=== PATIENT | male | born 2005 | race Caucasian/White ===

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

== ENCOUNTER 2023-07-02 07:38 | Emergency (ER) | payer OTHER ==
[~2023-07-02] VITALS: Ht 190.5 cm; Wt 81.7 kg
[2023-07-02 08:18] LABS: BASOPHILS ABSOLUTE AUTO 0.02 K/mm3 (0.00-0.23); BASOPHILS PERCENT AUTO 0 % (0-2); EOSINOPHILS ABSOLUTE AUTO 0.03 K/mm3 (0.00-0.68); EOSINOPHILS PERCENT AUTO 0 % (0-6); Hemoglobin 16.6 g/dL (13.5-17.5); IMMATURE GRAN ABSOLUTE AUTO 0.03 K/mm3 (0.00-0.10); IMMATURE GRAN PERCENT AUTO 0 % (0-1); LYMPHOCYTES ABSOLUTE AUTO 1.26 K/mm3 (0.84-5.20); LYMPHOCYTES PERCENT AUTO 13 % (21-46); MONOCYTES ABSOLUTE AUTO 0.44 K/mm3 (0.16-1.47); MONOCYTES PERCENT AUTO 5 % (4-13); Mean Corpuscular HGB 28.6 pg (26.0-34.0); Mean Corpuscular HGB Conc 34.6 g/dL (31.5-36.5); Mean Corpuscular Volume 83 fL (80-100); Mean Platelet Volume 9.7 fL (9.1-12.4); NEUTROPHILS ABSOLUTE AUTO 8.05 K/mm3 (1.96-9.15); NEUTROPHILS PERCENT AUTO 82 % (41-73); Platelet Count 249 K/mm3 (150-400); RDW Standard Deviation 36.4 fL (35.1-46.3); Red Blood Cell Count 5.81 M/mm3 (4.30-5.90); White Blood Cell Count 9.83 K/mm3 (4.00-11.30)
[2023-07-02 08:41] LABS: Albumin, Blood 4.5 g/dL (3.4-5.0); Albumin/Globulin Ratio 1.3 (0.8-1.8); Bilirubin, Direct 0.1 mg/dL (0.0-0.3); Bilirubin, Indirect 0.4 mg/dL (0.1-0.7); Bilirubin, Total 0.5 mg/dL (0.1-1.0); Bun/Creatinine Ratio 9.3 (12.0-20.0); Calcium, Blood 9.7 mg/dL (8.5-10.1); Creatinine, Blood 1.07 mg/dL (0.60-1.20); Globulin, Blood 3.5 g/dL (2.2-4.0); Magnesium, Blood 2.2 mg/dL (1.6-2.4); Potassium, Blood 4.3 mmol/L (3.5-5.5)
[2023-07-02 10:19] LABS: Source, Urine Clean Catch
[2023-07-02 10:34] LABS: Appearance, Urine Cloudy (Clear); Bilirubin, Urine Neg (Neg); Blood, Urine Neg (Neg); Color, Urine Yellow (P-Yellow); Glucose Qualitative, Urine Neg (Neg); Ketones, Urine Neg (Neg); Leukocyte Esterase, Urine Neg (Neg); Nitrite, Urine Neg (Neg); Protein, Urine 1+ (Neg); Urobilinogen, Urine NORM (Normal)
[2023-07-02 10:54] LABS: Amorphous Heavy (0-Heavy); Bacteria Not Seen /hpf; Red Blood Cells, Urine Not Seen /hpf (0-2); Squamous Epithelial Cells Not Seen /hpf (Few); White Blood Cells, Urine Not Seen /hpf (0-5)
[2023-07-02] MEDS ORDERED: DICY20 PO (11:23)
[2023-07-02] MEDS ORDERED: ONDA4ODT MM (11:23)
[2023-07-02 11:30] VITALS: BP 114/79
== END 2023-07-02 11:37 | disposition home or self-care (01) ==
LOC: ER 07:38
PROVIDERS: Student in an Organized Health Care Education/Training Program
DX: R10.10 Upper abdominal pain, unspecified (principal); R11.2 Nausea with vomiting, unspecified; Z88.0 Allergy status to penicillin; Z88.8 Allergy status to other drugs, medicaments and biological substances; F43.10 Post-traumatic stress disorder, unspecified
CPT/HCPCS: 74177; 80048; 80076; 81001; 83690; 83735; 85025; 93005; 93010; 96374-59; 96375-59; 99284-25; A9270; J1885; J2405; J7030; Q9967

== ENCOUNTER 2023-09-14 08:23 | Observation (INO) | payer OTHER ==
[~2023-09-14] VITALS: Ht 190.5 cm; Wt 81.7 kg
[2023-09-14] VITALS (12 sets, daily range): BP systolic 124–146; BP diastolic 68–87
[~2023-09-14 08:23] MED LIST changes: +DICY20 PO; +ONDA4ODT MM
[2023-09-14 10:00] LABS: BASOPHILS ABSOLUTE AUTO 0.02 K/mm3 (0.00-0.23); BASOPHILS PERCENT AUTO 0 % (0-2); EOSINOPHILS ABSOLUTE AUTO 0.02 K/mm3 (0.00-0.68); EOSINOPHILS PERCENT AUTO 0 % (0-6); Hematocrit 48.3 % (37.0-53.0); Hemoglobin 16.8 g/dL (13.5-17.5); IMMATURE GRAN ABSOLUTE AUTO 0.02 K/mm3 (0.00-0.10); IMMATURE GRAN PERCENT AUTO 0 % (0-1); LYMPHOCYTES ABSOLUTE AUTO 1.18 K/mm3 (0.84-5.20); LYMPHOCYTES PERCENT AUTO 11 % (21-46); MONOCYTES PERCENT AUTO 5 % (4-13); Mean Corpuscular HGB 28.6 pg (26.0-34.0); Mean Corpuscular HGB Conc 34.8 g/dL (31.5-36.5); Mean Corpuscular Volume 82 fL (80-100); Mean Platelet Volume 9.6 fL (9.1-12.4); NEUTROPHILS ABSOLUTE AUTO 9.35 K/mm3 (1.96-9.15); NEUTROPHILS PERCENT AUTO 84 % (41-73); Platelet Count 225 K/mm3 (150-400); RDW Coefficient Variation 11.9 % (11.7-14.2); RDW Standard Deviation 36.1 fL (35.1-46.3); Red Blood Cell Count 5.87 M/mm3 (4.30-5.90); White Blood Cell Count 11.09 K/mm3 (4.00-11.30)
[2023-09-14 10:24] LABS: Albumin, Blood 4.3 g/dL (3.4-5.0); Albumin/Globulin Ratio 1.3 (0.8-1.8); Bilirubin, Total 0.4 mg/dL (0.1-1.0); Bun/Creatinine Ratio 11.8 (12.0-20.0); Calcium, Blood 9.4 mg/dL (8.5-10.1); Creatinine, Blood 0.94 mg/dL (0.60-1.20); Globulin, Blood 3.4 g/dL (2.2-4.0); Potassium, Blood 3.9 mmol/L (3.5-5.5); Total Protein, Blood 7.7 g/dL (6.4-8.2)
--- NOTE | 2023-09-14 14:58 | NUR ---
APPROX 1410 PT ARRIVED TO ROOM VIA GURNEY FROM E.R., ABLE TO INDEPENDENTLY STAND AMBULATE TO BRP AND VOID, REPOSITION SELF IN BED, REP NPO SINCE 09/13 1800, DENIES N&V AND PAIN AT THIS TIME, IVF @ 100 MLS/HR, SURGICAL PRE-OP CLEANSE COMPLETE, SURGICAL PACKET COMPLETE, MOM BEDSIDE. LEFT FOR O.R. ON GURNEY AT 1500.
--- NOTE | 2023-09-14 18:44 | NUR ---
SHIFT SUMMARY BACK TO ROOM FROM PACU 0, S/P LAP ADDIS, 4 LAP SITES/STERIS CDI, A&OX4, VSS/RA, BEATRIZ PO CLD, DENIES PAIN, AWAITING POSTOP VOID, FAMILY BEDSIDE. WILL REPORT TO ONCOMING NOC RN.
--- NOTE | 2023-09-15 04:15 | NUR ---
SHIFT SUMMARY POD 1 LAP ADDIS. LAP SITE X4 C/D/I. NO ACUTE CHANGES OVERNIGHT. VS WNL FOR PT. TOLERATING ORALS. AMBULATES & TOILETS INDEPENDENTLY. PT REPORTS PAIN TOLERABLE, MEDICATED 1 NORCO PER EMAR. MOTHER STAYED WITH PATIENT OVERNIGHT IN BEDSIDE RECLINER. CALL LIGHT WITHIN REACH, BED IN LOWEST POSITION, WILL REPORT TO DAY RN.
[2023-09-15 05:07] VITALS: BP 120/58
[2023-09-15 07:02] VITALS: BP 127/67
[2023-09-15] MEDS ORDERED: HYDR1TAB94 PO (13:53)
--- NOTE | 2023-09-15 15:04 | NUR ---
DISCHARGE SUMMARY POD1 LAP DIAMOND MANCINI/STERIS CDI. A&OX4, VSS/RA, BEATRIZ PO, VOIDING, AMB INDEPENDENTLY/DRESSED SELF, PAIN MANAGED, IV DC'D. DC INS PROVIDED. PT REP UNDERSTANDING THOSE INSTRUCTIONS INCLUDING FU WITH SURGEON, NO LIFTING >15LBS X 2 WKS OFF WORK 2 WKS/LIGHT DUTY 2 WKS(WORK NOTE PROVIDED), OK TO SHOWER, EDU STERI STRIPS. LEFT FLOOR, DECLINING WC, TO GO HOME WITH GMA, WITH ALL PERSONAL POSSESSIONS INCLUDING DC PACKET AND 1 NARC SCRIPT AND 1 WORK NOTE.
== END 2023-09-15 14:40 | disposition home or self-care (01) ==
LOC: ER 08:23 → SURS 08:24
PROVIDERS: Physician Assistant; ADMIT Surgery
PROC: 0FT44ZZ Resection of Gallbladder, Percutaneous Endoscopic Approach (ICD-10-PCS; principal; 2023-09-14 15:30)
PROC: BF121ZZ Fluoroscopy of Gallbladder using Low Osmolar Contrast (ICD-10-PCS; principal; 2023-09-14 15:30)
DX: K80.12 Calculus of gallbladder with acute and chronic cholecystitis without obstruction (principal); F41.9 Anxiety disorder, unspecified; Z72.0 Tobacco use; Z88.0 Allergy status to penicillin
CPT/HCPCS: 76705; 80053; 83690; 85025; 88304; 96361; 96374; 96375; 96376; 99285-25; A9270; G0378; J0690; J1100; J1885; J2250; J2405; J2704; J3010; J7030; J7120